=== PATIENT | male | born 1980 | race Two or more races ===

== ENCOUNTER 2022-03-08 22:27 | Emergency (ER) | payer MEDICARE, OTHER ==
[~2022-03-08] VITALS: Ht 177.8 cm; Wt 65.8 kg
[2022-03-09] MEDS ORDERED: KETOROLAC TROMETH 60MG/2ML VIAL IM ONE (01:15)
[2022-03-09 02:49] VITALS: BP 123/66
== END 2022-03-09 02:54 | disposition home or self-care (01) ==
LOC: ER 22:39
DX: M13.812 Other specified arthritis, left shoulder (principal); M25.512 Pain in left shoulder; Z88.6 Allergy status to analgesic agent
CPT/HCPCS: 73030; 96372; 99283; J1885

== ENCOUNTER 2022-04-04 10:26 | Emergency (ER) | payer MEDICARE, MEDICAID ==
[~2022-04-04] VITALS: Ht 177.8 cm; Wt 63.5 kg
[2022-04-04 10:32] VITALS: BP 126/81
== END 2022-04-04 11:25 | disposition home or self-care (01) ==
LOC: ER 10:26
DX: M67.432 Ganglion, left wrist (principal); I10 Essential (primary) hypertension; E78.5 Hyperlipidemia, unspecified; F17.210 Nicotine dependence, cigarettes, uncomplicated; Z88.5 Allergy status to narcotic agent

== ENCOUNTER 2022-09-01 17:55 | Emergency (ER) | payer MEDICARE, MEDICAID ==
[2022-09-01 18:10] VITALS: BP 109/68
== END 2022-09-02 05:28 | disposition left against medical advice (07) ==
LOC: ER 17:55
DX: M79.652 Pain in left thigh (principal); M79.651 Pain in right thigh; F17.210 Nicotine dependence, cigarettes, uncomplicated; E78.5 Hyperlipidemia, unspecified; I10 Essential (primary) hypertension; Z88.6 Allergy status to analgesic agent

== ENCOUNTER 2023-04-29 21:12 | Emergency (ER) | payer MEDICARE, MEDICAID ==
[2023-04-29] MEDS ORDERED: AMOX875T4 PO (23:27)
[2023-04-29] MEDS ORDERED: ACET500T58 PO (23:27)
[2023-04-29 23:49] VITALS: BP 117/83
== END 2023-04-29 23:41 | disposition home or self-care (01) ==
LOC: ER 21:12
DX: S00.83XA Contusion of other part of head, initial encounter (principal); K02.9 Dental caries, unspecified; E78.5 Hyperlipidemia, unspecified; I10 Essential (primary) hypertension; Z88.6 Allergy status to analgesic agent; Y04.2XXA Assault by strike against or bumped into by another person, initial encounter; Y93.89 Activity, other specified; Y92.89 Other specified places as the place of occurrence of the external cause; Y99.8 Other external cause status
CPT/HCPCS: 70450; 70486; 72125